=== PATIENT | male | born 1985 | race Caucasian/White ===

== ENCOUNTER 2018-05-27 02:14 | Emergency (ER) | payer MEDICAID ==
[~2018-05-27] VITALS: Ht 175.3 cm; Wt 73.0 kg
[~2018-05-27 02:14] MED LIST: NAPR-56 PO; NO HOME MEDS
[2018-05-27 02:18] VITALS: BP 132/70
== END 2018-05-27 02:44 | disposition home or self-care (01) ==
LOC: ER 02:14
DX: S30.0XXA Contusion of lower back and pelvis, initial encounter (principal); K62.89 Other specified diseases of anus and rectum; F17.200 Nicotine dependence, unspecified, uncomplicated; F15.90 Other stimulant use, unspecified, uncomplicated; F19.90 Other psychoactive substance use, unspecified, uncomplicated; Z98.890 Other specified postprocedural states; Z56.0 Unemployment, unspecified; Z79.899 Other long term (current) drug therapy; Y09 Assault by unspecified means; Y93.51 Activity, roller skating (inline) and skateboarding; Y92.89 Other specified places as the place of occurrence of the external cause; Y99.8 Other external cause status
CPT/HCPCS: 99281